=== PATIENT | male | born 1955 | race Caucasian/White ===

== ENCOUNTER → 2019-09-09 | Outpatient (CLI) | payer MEDICARE ==
[~2019-09-09] VITALS: Ht 190 cm; Wt 131.0 kg
[~2019-09-09] MED LIST: ASA 81MG PO; CATHETER FLUSH 10 ML SYR IV PRN; CHOL200035 PO; FENO48TA PO; FOLI0.4T2 PO; FURO20TA4 PO; GLIM4TAB PO; HCT25T PO; KCL10CCR PO; LIRA0.6P SQ; LISI10TA PO; LVT.05T PO; METF-380 PO; MULTI COMPLETE PO; OMEG-12 PO; PGLT30T PO; VIT B12
--- NOTE | 2019-09-11 21:48 | STRESS TEST ---
DATE OF SERVICE: RESTING AND POST EXERCISE TECHNETIUM-99M TETROFOSMIN SPECT CT IMAGING ORDERING PHYSICIAN: Dr. Robles. PRIMARY PHYSICIAN: Dr. Robles. CLINICAL DIAGNOSES: Hypertension. Baseline images were carried out after injection of 10.99 mCi of technetium-99m Tetrofosmin. Exercise was carried out on a treadmill. The electrocardiographic portion of the study is reported separately by Dr. Robles. This study was carried out under the Dr. Robles's supervision. A 30.6 mCi of technetium-99m Tetrofosmin were injected at peak exercise. Review of images at rest and following stress indicates a small inferolateral perfusion defect that appears mostly fixed. Gated images show localized inferolateral hypokinesis. Left ventricular ejection fraction is calculated to be 61%. Left ventricular end diastolic volume is 74 mL. TID is absent (1.04). CONCLUSIONS: 1. This study suggests an inferolateral myocardial infarction with a small amount of zaida-infarct ischemia. 2. Localized inferolateral hypokinesis. 3. Left ventricular ejection fraction is calculated to be 61%. Job ID: [id number] DocumentID: [id number] Dictated Date: 09/11/2019 17:45:29 Perioperative Nurse Date: 09/11/2019 21:47:30 Dictated By: OLIVIER PAYTON MD, MA, FACP, FACC,
== END ==
LOC: CARD 06:40
PROVIDERS: ATTEND Internal Medicine
DX: I11.9 Hypertensive heart disease without heart failure (principal); I25.89 Other forms of chronic ischemic heart disease
CPT/HCPCS: 78452; 93017